=== PATIENT | female | born 1990 | race American Indian/Alaskan Native ===

== ENCOUNTER 2017-06-26 18:23 | Emergency (ER) | payer BC ==
[~2017-06-26] VITALS: Ht 165.1 cm; Wt 63.5 kg
[~2017-06-26 18:23] MED LIST: HYDR-317 PO; KET10 PO; LEVO-3 PO; LEVO88TA45 PO; MISO200T59 PO; ONDA4TAB PO
--- NOTE | 2017-06-26 18:34 | ER Report ---
History and Physical Time Seen By MD: 18:33 HPI/ROS CHIEF COMPLAINT: Flank pain HISTORY OF PRESENT ILLNESS: 26-year-old female patient presents to emergency room with complaint of left-sided flank pain. Patient states this been going on for the past few hours. She states that she has not noticed any problems with urination. She states that she has not taken any medication for this. She denies having any fevers, chills, nausea, vomiting or diarrhea. Patient states she's not had any problems like this in the past. She states there is nothing seems to make the pain better or worse. Patient states that the pain is located to the left flank. Patient rates pain a 7 out of 10. REVIEW OF SYSTEMS: Respiratory: No cough, no dyspnea. Cardiovascular: No chest pain, no palpitations. Gastrointestinal: No vomiting, no abdominal pain. Musculoskeletal: As noted above. Allergies: Coded Allergies: misoprostol (Verified Adverse Reaction, Severe, N/V, 06/26/17) Home Meds Reported Medications [drenamin] No Conflict Check 06/26/17 Levothyroxine Sodium (LEVOTHYROXINE SODIUM) 100 Mcg Tablet, 88 MCG PO QDAY, TAB 03/29/17 Discontinued Scripts Ondansetron (ZOFRAN ODT) 4 Mg Tab.rapdis, 4 MG PO Q6H Y for NAUSEA/PAIN, #20 TAB 0 Refills TAKE 1 TABLET BY MOUTH EVERY 12 HOURS Prov:WILMER LAU MD 03/29/17 Past Medical/Surgical History Patient has a past medical history of hypothyroidism, anxiety. Patient has a surgical history of wisdom teeth removal. Reviewed Nurses Notes: Yes Hx Smoking: No Smoking Status: Never Smoker Hx Substance Use Disorder: No Hx Alcohol Use: No Constitutional Vital Sign - Last 24 Hours 06/26/17 06/26/17 18:30 20:34 Temp 98.6 Pulse 79 85 Resp 16 16 B/P (MAP) 123/86 115/72 (86) Pulse Ox 97 92 O2 Delivery Room Air Room Air Physical Exam General Appearance: The patient is alert, has no immediate need for airway protection and no current signs of toxicity. ENT: Tympanic membranes are pearly-brown, auditory canals are patent, mucous membranes are moist. Respiratory: Chest is non tender, lungs are clear to auscultation. Cardiac: regular rate and rhythm Gastrointestinal: Abdomen is soft and non tender, no masses, bowel sounds normal. Patient has no CVA tenderness. Musculoskeletal: Neck: Neck is supple and non tender. Extremities have full range of motion and are non tender. Back: Patient does have some tenderness to the left side of the back, there is no bruising noted. Skin: No rashes or lesions. DIFFERENTIAL DIAGNOSIS: After history and physical exam differential diagnosis was considered for contusion, fracture, kidney stone, pyelonephritis, urinary tract infection. Medical Decision Making Data Points Result Diagram: 06/26/17184906/26/171849 Laboratory Hematology Test 06/26/17 18:50 06/26/17 19:17 Red Blood Count 5.29 M/uL (4.17-5.56) Mean Corpuscular Volume 86.2 fL (80.0-96.0) Mean Corpuscular Hemoglobin 29.9 pg (26.0-33.0) Mean Corpuscular Hemoglobin Concent 34.7 g/dL (32.0-36.0) Red Cell Distribution Width 13.5 % (11.5-14.5) Mean Platelet Volume 7.7 fL (7.2-11.1) Neutrophils (%) (Auto) 48.3 % (39.4-72.5) Lymphocytes (%) (Auto) 30.2 % (17.6-49.6) Monocytes (%) (Auto) 10.2 % (4.1-12.4) Eosinophils (%) (Auto) 10.4 % (0.4-6.7) Basophils (%) (Auto) 0.9 % (0.3-1.4) Nucleated RBC Relative Count (auto) 0.0 /100WBC Neutrophils # (Auto) 3.8 K/uL (2.0-7.4) Lymphocytes # (Auto) 2.4 K/uL (1.3-3.6) Monocytes # (Auto) 0.8 K/uL (0.3-1.0) Eosinophils # (Auto) 0.8 K/uL (0.0-0.5) Basophils # (Auto) 0.1 K/uL (0.0-0.1) Nucleated RBC Absolute Count (auto) 0.00 K/uL Peripheral Blood Smear Yes Y/N Sodium Level 139 mmol/L (137-145) Potassium Level 4.0 mmol/L (3.5-5.0) Chloride Level 102 mmol/L (98-107) Carbon Dioxide Level 26 mmol/L (22-31) Blood Urea Nitrogen 12 mg/dl (7-18) Creatinine 0.90 mg/dl (0.52-1.04) Glomerular Filtration Rate Calc > 60.0 Random Glucose 82 mg/dl (75-110) Calcium Level 9.4 mg/dl (8.4-10.2) Total Bilirubin 0.4 mg/dl (0.2-1.3) Aspartate Amino Transf (AST/SGOT) 22 U/L (0-35) Alanine Aminotransferase (ALT/SGPT) 27 U/L (0-56) Alkaline Phosphatase 57 U/L (0-126) C-Reactive Protein < 0.5 mg/dl (<1.0) Total Protein 7.8 gm/dl (6.3-8.2) Albumin 4.4 g/dl (3.5-5.0) Urine Color Straw Urine Clarity Clear Urine pH 6.0 pH (4.8-9.5) Urine Specific [place] 1.002 Urine Protein Negative mg/dL (NEGATIVE) Urine Glucose (UA) Negative mg/dL (NEGATIVE) Urine Ketones Negative mg/dL (NEGATIVE) Urine Blood Large (NEGATIVE) Urine Nitrite Negative (NEGATIVE) Urine Bilirubin Negative (NEGATIVE) Urine Urobilinogen Negative mg/dL (0.2-1.9) Urine Leukocyte Esterase Negative (NEGATIVE) Urine RBC <1 /HPF (0-2/HPF) Urine WBC <1 /HPF (0-5/HPF) Urine Squamous Epithelial Cells Moderate /LPF (</=FEW) Urine Bacteria Negative /HPF (NONE-FEW) Urine Mucus None /HPF (NONE-FEW) Chemistry Test 06/26/17 18:50 06/26/17 19:17 White Blood Count 7.9 k/uL (4.5-11.0) Red Blood Count 5.29 M/uL (4.17-5.56) Hemoglobin 15.8 g/dL (12.0-16.0) Hematocrit 45.6 % (34.0-47.0) Mean Corpuscular Volume 86.2 fL (80.0-96.0) Mean Corpuscular Hemoglobin 29.9 pg (26.0-33.0) Mean Corpuscular Hemoglobin Concent 34.7 g/dL (32.0-36.0) Red Cell Distribution Width 13.5 % (11.5-14.5) Platelet Count 245 K/uL (150-450) Mean Platelet Volume 7.7 fL (7.2-11.1) Neutrophils (%) (Auto) 48.3 % (39.4-72.5) Lymphocytes (%) (Auto) 30.2 % (17.6-49.6) Monocytes (%) (Auto) 10.2 % (4.1-12.4) Eosinophils (%) (Auto) 10.4 % (0.4-6.7) Basophils (%) (Auto) 0.9 % (0.3-1.4) Nucleated RBC Relative Count (auto) 0.0 /100WBC Neutrophils # (Auto) 3.8 K/uL (2.0-7.4) Lymphocytes # (Auto) 2.4 K/uL (1.3-3.6) Monocytes # (Auto) 0.8 K/uL (0.3-1.0) Eosinophils # (Auto) 0.8 K/uL (0.0-0.5) Basophils # (Auto) 0.1 K/uL (0.0-0.1) Nucleated RBC Absolute Count (auto) 0.00 K/uL Peripheral Blood Smear Yes Y/N Glomerular Filtration Rate Calc > 60.0 Calcium Level 9.4 mg/dl (8.4-10.2) Total Bilirubin 0.4 mg/dl (0.2-1.3) Aspartate Amino Transf (AST/SGOT) 22 U/L (0-35) Alanine Aminotransferase (ALT/SGPT) 27 U/L (0-56) Alkaline Phosphatase 57 U/L (0-126) C-Reactive Protein < 0.5 mg/dl (<1.0) Total Protein 7.8 gm/dl (6.3-8.2) Albumin 4.4 g/dl (3.5-5.0) Urine Color Straw Urine Clarity Clear Urine pH 6.0 pH (4.8-9.5) Urine Specific [place] 1.002 Urine Protein Negative mg/dL (NEGATIVE) Urine Glucose (UA) Negative mg/dL (NEGATIVE) Urine Ketones Negative mg/dL (NEGATIVE) Urine Blood Large (NEGATIVE) Urine Nitrite Negative (NEGATIVE) Urine Bilirubin Negative (NEGATIVE) Urine Urobilinogen Negative mg/dL (0.2-1.9) Urine Leukocyte Esterase Negative (NEGATIVE) Urine RBC <1 /HPF (0-2/HPF) Urine WBC <1 /HPF (0-5/HPF) Urine Squamous Epithelial Cells Moderate /LPF (</=FEW) Urine Bacteria Negative /HPF (NONE-FEW) Urine Mucus None /HPF (NONE-FEW) Urinalysis Test 06/26/17 19:17 Urine Color Straw Urine Clarity Clear Urine pH 6.0 pH (4.8-9.5) Urine Specific [place] 1.002 Urine Protein Negative mg/dL (NEGATIVE) Urine Glucose (UA) Negative mg/dL (NEGATIVE) Urine Ketones Negative mg/dL (NEGATIVE) Urine Blood Large (NEGATIVE) Urine Nitrite Negative (NEGATIVE) Urine Bilirubin Negative (NEGATIVE) Urine Urobilinogen Negative mg/dL (0.2-1.9) Urine Leukocyte Esterase Negative (NEGATIVE) Urine RBC <1 /HPF (0-2/HPF) Urine WBC <1 /HPF (0-5/HPF) Urine Squamous Epithelial Cells Moderate /LPF (</=FEW) Urine Bacteria Negative /HPF (NONE-FEW) Urine Mucus None /HPF (NONE-FEW) EKG/Imaging Imaging INDICATION: Low back pain, mainly on the left. No known injury. EXAM DATE: 06/26/2017 6:43 PM COMPARISON: Abdomen series radiographs 03/18/2015. FINDINGS: 5 images of the lumbar spine. Mineralization is normal. No acute alignment abnormality or fracture. Disc spaces are well-maintained. Soft tissues are unremarkable. IMPRESSION: No acute abnormality or apparent etiology of reported low back pain. Report Dictated By: Erik Prakash MD at 06/26/2017 8:03 PM Report E-Signed By: Erik Prakash MD at 06/26/2017 8:06 PM ED Course/Re-evaluation ED Course Patient was admitted to exam room, history and physical were obtained. Differential diagnoses were considered. On examination patient has tenderness to the left side of the back, there is no bruising noted. Patient had no CVA tenderness. A CBC, CMP, urinalysis were obtained. Patient had normal labs, she had no red blood cells or white blood cells in the urine. X-ray of the lumbar spine was done which was negative. Those looking at the x-ray of the lumbar spine I was surprised noted that there was a fair amount of stool in the colon. She also seemed to have a large amount of gas in the area where she was most tender. I discussed the findings with the patient and her mother. We will go ahead and discharge her home at this time. She is return to the emergency room if condition worsens. Would like her to follow-up with her primary care provider in the next week. We will go ahead and treat this with magnesium citrate. She is to take that when she returns home this evening. I discussed this with the patient and her mother they verbalized understanding and agreement. Decision to Disposition Date: Jun 26, 2017 Decision to Disposition Time: 20:28 Depart Departure Latest Vital Signs Vital Signs Date Time Temp Pulse Resp B/P (MAP) Pulse Ox O2 Delivery O2 Flow Rate FiO2 06/26/17 20:34 85 16 115/72 (86) 92 Room Air 06/26/17 18:30 98.6 Impression: Primary Impression: Constipation Condition: Improved Disposition: HOME OR SELF-CARE Referrals: BUBBA MARTINES DO (PCP) Patient Instructions: Constipation (ED) Additional Instructions: Increase fluid intake. Get plenty of rest. Make sure that you are getting plenty of exercise. Increase fiber intake. Take the Magnesium Citrate when you get home. Follow up with your primary care provider in the next week. Problem Qualifiers Primary Impression: Constipation Constipation type: other constipation type Qualified Codes: K59.09 - Other constipation VANESSA PRUITT Jun 26, 2017 18:34
[2017-06-26] MEDS ORDERED: drenamin (18:35)
[2017-06-26 18:57] LABS: PLATELET COUNT, AUTOMATED 245 K/uL (150-450)
--- NOTE | 2017-06-26 20:11 | RADIOLOGY IMAGING REPORT ---
FACILITY: [facility] PATIENT NAME: Lyly Allen : 1990 MR: [id number] V: [id number] EXAM DATE: ORDERING PHYSICIAN: VANESSA PRUITT TECHNOLOGIST: Location: [facility] Patient: Lyly Allen : 1990 Visit/Account:[id number] Date of Sevice: 06/26/2017 INDICATION: Low back pain, mainly on the left. No known injury. EXAM DATE: 06/26/2017 6:43 PM COMPARISON: Abdomen series radiographs 03/18/2015. FINDINGS: 5 images of the lumbar spine. Mineralization is normal. No acute alignment abnormality or fracture. Disc spaces are well-maintained. Soft tissues are unremarkable. IMPRESSION: No acute abnormality or apparent etiology of reported low back pain. Report Dictated By: Erik Prakash MD at 06/26/2017 8:03 PM Report E-Signed By: Erik Prakash MD at 06/26/2017 8:06 PM WSN:[id number]
[2017-06-26] MEDS ORDERED: MAGNESIUM CITRATE 300 ML BTL PO ONE (20:30)
[2017-06-26 20:34] VITALS: BP 115/72
== END 2017-06-26 20:35 | disposition home or self-care (01) ==
LOC: ER 18:37
DX: K59.09 Other constipation (principal)
CPT/HCPCS: 72120; 81001; 82040; 82247; 82310; 82374; 82435; 82565; 82947; 84075; 84132; 84155; 84295; 84450; 84460; 84520; 85025; 86140; 99284

== ENCOUNTER → 2017-12-20 | Outpatient (CLI) | payer BC ==
[~2017-12-20] MED LIST changes: +drenamin
[2017-12-20 12:32] LABS: PLATELET COUNT, AUTOMATED 284 K/uL (150-450)
--- NOTE | 2017-12-20 14:36 | RADIOLOGY IMAGING REPORT ---
[place] [facility] [place] Lyly [place] : 1990 MR: [id number] V: [id number] EXAM DATE: ORDERING PHYSICIAN: VANESSA PRUITT TECHNOLOGIST: [facility] Patient: Lyly Allen : 1990 Visit/Account:[id number] Date of Sevice: 12/20/2017 VENOUS DOPP LOW LEFT EXTREMITY HISTORY: Leg pain COMPARISON: None. FINDINGS: Grayscale, duplex and color Doppler interrogation of the left lower extremity deep veins from common femoral vein to proximal calf was completed. The greater saphenous vein in the proximal thigh was maurizio luated using similar technique. Common femoral vein - Negative. Femoral vein - Negative. Deep femoral vein - Negative. Popliteal vein - Negative. Visualized deep calf veins - Negative. Popliteal fossa: Negative. Greater saphenous vein in the proximal thigh: Negative. IMPRESSION: Negative left lower extremity venous ultrasound Report Dictated By: Oneil Pride at 12/20/2017 2:29 PM Report E-Signed By: Oneil Pride at 12/20/2017 2:30 PM WSN:[id number]
== END ==
LOC: US 12:21
PROVIDERS: ATTEND Nurse Practitioner Family
DX: M79.662 Pain in left lower leg (principal)
CPT/HCPCS: 36415; 82040; 82247; 82310; 82374; 82435; 82565; 82947; 84075; 84132; 84155; 84295; 84450; 84460; 84520; 85025